=== PATIENT | male | born 1940 | race Caucasian/White ===

== ENCOUNTER 2017-10-26 21:12 | Emergency (ER) | payer MEDICARE, MEDICAID ==
[~2017-10-26] VITALS: Ht 172.7 cm; Wt 72.6 kg
[~2017-10-26 21:12] MED LIST: DEPRESSION MED; [UNRECOGNIZED DRUG - REMARK]
[2017-10-26] MEDS ORDERED: ONDANSETRON 4 MG/2 ML VIAL IV ONE (21:45)
[2017-10-26] MEDS ORDERED: HYDROCODONE/APAP 5-325MG TABLET PO ONE (21:45)
[2017-10-26] MEDS ORDERED: ASPIRIN 81 MG TAB.CHEW PO ONE (21:45)
--- NOTE | 2017-10-26 21:45 | NUR ---
PT ARRIVES FROM HOME, C/O "SQUEEZING" JAW PAIN FOR PAST 24 HOURS. DENIES ANY CHEST PAIN OR SOB. FAMILY AT BEDSIDE. NSR ON MONITOR
[2017-10-26 21:52] LABS: BASOPHILS # (AUTO) 0.1 K/uL (0.0-8.0); BASOPHILS % (AUTO) 0.8 % (0.0-2.0); EOSINOPHILS # (AUTO) 0.1 K/uL (0.0-0.7); EOSINOPHILS % (AUTO) 0.7 % (0.0-7.0); HEMATOCRIT 40.9 % (36.7-47.1); HEMOGLOBIN 13.8 g/dL (12.5-16.3); LYMPHOCYTES # (AUTO) 1.9 K/uL (20.0-40.0); LYMPHOCYTES % (AUTO) 22.3 % (20.5-51.5); MEAN CORPUSCULAR HEMOGLOBIN 31.6 uug (23.8-33.4); MEAN CORPUSCULAR HGB CONC 34 g/dL (32.5-36.3); MEAN CORPUSCULAR VOLUME 93.5 fL (73.0-96.2); MONOCYTES # (AUTO) 0.6 K/uL (2.0-10.0); MONOCYTES % (AUTO) 6.7 % (0.0-11.0); NEUTROPHILS % (AUTO) 69.5 % (38.5-71.5); PLATELET COUNT (AUTO) 125 K/uL (152-348); RED BLOOD CELL COUNT(AUTO) 4.37 MIL/uL (4.06-5.63); WHITE BLOOD COUNT (AUTO) 8.7 K/uL (3.6-10.2)
[2017-10-26] MEDS ORDERED: ASPIRIN 81 MG TAB.CHEW ONE (22:01)
[2017-10-26] MEDS ORDERED: HYDROCODONE/APAP 5-325MG TABLET ONE (22:01)
[2017-10-26] MEDS ORDERED: ONDANSETRON 4 MG/2 ML VIAL ONE (22:02)
[2017-10-26 22:03] LABS: CARBON DIOXIDE 29 mmol/L (21-32); CHLORIDE 104 mmol/L (98-107); CREATININE 1.1 mg/dL (0.6-1.3); GLUCOSE 183 mg/dL (74-106); POTASSIUM 4.1 mmol/L (3.5-5.1); UREA NITROGEN, BLOOD 21 mg/dL (7-18)
[2017-10-26 22:16] LABS: ALANINE AMINOTRANSFERASE 21 U/L (16-63); ALKALINE PHOSPHATASE 62 U/L (50-136); ASPARTATE AMINOTRANSFERASE 16 U/L (15-37); BILIRUBIN,DIRECT 0.1 mg/dL (0.0-0.2); BILIRUBIN,TOTAL 0.4 mg/dL (0.2-1.0); TOTAL PROTEIN, SERUM 6.5 g/dL (6.4-8.2)
--- NOTE | 2017-10-26 23:40 | NUR ---
PT RESTING IN A POSITION OF COMFORT FOR SELF. FAMILY AT BEDSIDE. NO COMPLAINTS AT THIS TIME.
--- NOTE | 2017-10-27 00:30 | NUR ---
PT RESTING COMFORTABLY, NO DISTRESS NOTED
--- NOTE | 2017-10-27 01:00 | NUR ---
LAB AT PT BEDSIDE FOR REPEAT TROPONIN
--- NOTE | 2017-10-27 02:23 | NUR ---
Patient discharged to home in stable conditon. Written and verbal after care instructions given. Patient verbalizes understanding of instructions. Pt left ER in wheelchair w/ family
[2017-10-27 02:24] VITALS: BP 114/66
== END 2017-10-27 01:30 | disposition home or self-care (01) ==
LOC: ER 21:13
DX: R68.84 Jaw pain (principal); E11.9 Type 2 diabetes mellitus without complications
CPT/HCPCS: 36415; 70030-TC; 71010; 85025; 85730; 93005; A4663; J2405

== ENCOUNTER 2018-10-26 17:44 | Emergency (ER) | payer MEDICARE, MEDICAID ==
[~2018-10-26] VITALS: Ht 167.6 cm; Wt 70.3 kg
--- NOTE | 2018-10-26 18:05 | NUR ---
Pt and family are unable to recall pt's home medications at this time.
--- NOTE | 2018-10-26 18:59 | NUR ---
Pt out of ER for CT.
[2018-10-26] MEDS ORDERED: HYDROCODONE/APAP 5-325MG TABLET PO ONE (19:00)
[2018-10-26] MEDS ORDERED: ONDANSETRON ODT 4 MG TAB.RAPDIS SL ONE (19:00)
--- NOTE | 2018-10-26 19:15 | NUR ---
Pt back to ER from Xray.
[2018-10-26] MEDS ORDERED: ONDANSETRON ODT 4 MG TAB.RAPDIS ONE (19:16)
[2018-10-26] MEDS ORDERED: HYDROCODONE/APAP 5-325MG TABLET ONE (19:16)
--- NOTE | 2018-10-26 19:43 | NUR ---
Pt states backpain feels better, doesn't want anymore pain meds for now.
--- NOTE | 2018-10-26 19:55 | NUR ---
Patient discharged to home in stable conditon. Written and verbal after care instructions given. Patient verbalizes understanding of instructions. Patient ambulated out of ER with cane, accompanied by , no acute signs of distress, VSS, all belongings taken, to be driven by via private vehicle.
[2018-10-26 19:58] VITALS: BP 119/74
== END 2018-10-26 19:58 | disposition home or self-care (01) ==
LOC: ER 17:44
DX: M54.5 Low back pain (principal); E11.9 Type 2 diabetes mellitus without complications; Z79.899 Other long term (current) drug therapy
CPT/HCPCS: 72072; 72100; A4663; Q0162